=== PATIENT | female | born 1985 | race Caucasian/White ===

== ENCOUNTER 2017-01-25 06:57 | Emergency (ER) | payer MEDICAID ==
[~2017-01-25] VITALS: Wt 65.0 kg
[~2017-01-25 06:57] MED LIST: AZIT250T94 PO; D-ME473S18 PO; FAMO-18; MECL25TA2 PO
[2017-01-25] MEDS ORDERED: AZIT250T94 PO (07:47)
[2017-01-25] MEDS ORDERED: BENZ100C70 PO (07:47)
[2017-01-25] MEDS ORDERED: ALBU8.5H3 INH (07:47)
--- NOTE | 2017-01-25 08:09 | ERD ---
ER Documentation Chief Complaint Date/Time DATE: 01/25/17 TIME: 08:03 Chief Complaint Productive cough 10 days HPI 31-year-old female patient with no significant past medical history presents the ED complaining of a productive cough that started 10 days ago. Patient reports that her phlegm is yellow. Patient reports that she has been taking cough medication called Tussin which has not relieved her symptoms. States that she has a slight sore throat. Patient reports that the symptoms are similar to her symptoms in May 2016 and Zithromax worked for her symptoms at that time when she was diagnosed with bronchitis. Denies any fever, chills, abdominal pain, hemoptysis, hematemesis, nausea, vomiting, diarrhea, rashes, chest pain, shortness of breath, wheezing. Denies any recent traveling. Denies any leg swelling. ROS All systems reviewed and are negative except as per history of present illness. Medications Home Meds Active Scripts Albuterol Sulfate* (Proair HFA*) 8.5 Gm Hfa.aer.ad, 2 PUFF INH Q4, #1 INHALER Prov:AVE ESTEVES PA-C 01/25/17 Azithromycin* (Zithromax*) 250 Mg Tablet, 250 MG PO .ZPACK DIRECTED, #6 TAB TAKE 500 MG (2 TABS) THE FIRST DAY THEN 250 MG (1 TAB) DAYS 2-5 Prov:AVE ESTEVES PA-C 01/25/17 Benzonatate* (Tessalon Perle*) 100 Mg Capsule, 100 MG PO Q8H Y for COUGH, #20 CAP Prov:AVE ESTEVES PA-C 01/25/17 Dextromethorphan Hb-Promethazine Hcl (Promethazine DM Syrup) 473 Ml Syrup, 5 ML PO Q6H Y for COUGH, #4 OZ Prov:MARIO FREY MD 05/16/16 Azithromycin* (Zithromax*) 250 Mg Tablet, 250 MG PO .ZPACK DIRECTED, #6 TAB TAKE 500 MG (2 TABS) THE FIRST DAY THEN 250 MG (1 TAB) DAYS 2-5 Prov:MARIO FREY MD 05/16/16 Meclizine Hcl* (Antivert*) 25 Mg Tablet, 25 MG PO Q6H Y for dizziness, #20 TAB Prov:YANG EATON I. PATHOLOGY LAB TECHNICIAN 07/24/15 Reported Medications Famotidine* (Pepcid*) 20 Mg Tablet 09/16/10 Allergies Allergies: Uncoded Allergies: MEAT (Allergy, Unknown, 07/24/15) PMhx/Soc History of Surgery: No Anesthesia Reaction: No Hx Neurological Disorder: No Hx Respiratory Disorders: No Hx Cardiac Disorders: No Hx Psychiatric Problems: No Hx Miscellaneous Medical Probl: Yes (GASTRITIS) Hx Alcohol Use: No Hx Substance Use: No Hx Tobacco Use: No Physical Exam Vitals Vital Signs Date Time Temp Pulse Resp B/P Pulse Ox O2 Delivery O2 Flow Rate FiO2 01/25/17 07:01 98.0 80 18 134/73 99 Physical Exam Const: Fbo-mji-gpzsdmumx, well-nourished. In no acute distress. Head: Atraumatic, normocephalic Eyes: Normal Conjunctiva without injection. No purulent discharge. PERRL. EOMI ENT: Normal external ear. Ear canal without erythema. Tympanic membrane pearly greene without effusion or bulging. Nasal canal clear with normal turbinates. Moist oropharynx without tonsillar exudates. Non-erythematous pharynx. Uvula midline. No drooling. No trismus. Neck: Full range of motion. No meningismus. No cervical lymphadenopathy. Resp: Clear to auscultation bilaterally. No wheezing, rhonchi, rales, or crackles. No accessory muscle use. No retractions. Cardio: Regular rate and rhythm. No murmurs, rubs or gallops. Abd: Soft, non tender, non distended. Normal bowel sounds. No palpable masses. No rebound tenderness. No guarding. Skin: No petechiae or rashes Back: No midline tenderness. No CVA tenderness. Ext: No cyanosis, or edema. Neur: Awake and alert. Psych: Normal Mood and Affect Procedures/MDM This is a 31-year-old female patient with no significant past medical history presents the ED complaining of a productive cough that started 10 days ago. Patient is afebrile and nontoxic-appearing. Patient has normal vital signs. This patient presents to the ED with symptoms consistent with bronchitis. Patient is afebrile and has normal vital signs. Patient's physical exam include lungs which were clear to auscultation and a normal pulse oximetry. There is a low suspicion for pneumonia, CHF, atypical PR, pneumothorax, mononucleosis, pulmonary embolism, epiglottitis, otitis media, otitis externa, viral/strep pharyngitis, sinusitis, peritonsillar abscess, mastoiditis, retropharyngeal abscess, meningitis, sepsis, acute abdomen or other emergent conditions. Patient states that she is not sexually active and is not . A course of antibiotics and cough medication prescription will be written for patient. Discharge medications: ProAir air, Zithromax, Tessalon Perles Patient was instructed to return to the ED for any new or worsening symptoms. They should otherwise follow up with the primary care provider within 1-2 days. The patient's questions were answered at the time of discharge. Patient understood and agreed with discharge management. Departure Diagnosis: Primary Impression: Cough Condition: Stable Patient Instructions: Bronchitis, Antiobiotic Treatment (Adult) Referrals: COMM[facility]ITY CLINICS YOU HAVE RECEIVED A MEDICAL SCREENING EXAM AND THE RESULTS INDICATE THAT YOU DO NOT HAVE A CONDITION THAT REQUIRES URGENT TREATMENT IN THE EMERGENCY DEPARTMENT. FURTHER EVALUATION AND TREATMENT OF YOUR CONDITION CAN WAIT UNTIL YOU ARE SEEN IN YOUR DOCTORS OFFICE WITHIN THE NEXT 1-2 DAYS. IT IS YOUR RESPONSIBILITY TO MAKE AN APPOINTMENT FOR FOLOW-UP CARE. IF YOU HAVE A PRIMARY DOCTOR --you should call your primary doctor and schedule an appointment IF YOU DO NOT HAVE A PRIMARY DOCTOR YOU CAN CALL OUR PHYSICIAN REFERRAL HOTLINE AT IF YOU CAN NOT AFFORD TO SEE A PHYSICIAN YOU CAN CHOSE FROM THE FOLLOWING [facility] CLINICS [facility] [address] [facility]. [facility] [address] [facility] [facility] [address] [facility]. [facility] [address] [facility] [address] [facility]. [facility]. [address] [facility]. [facility] YOU HAVE RECEIVED A MEDICAL SCREENING EXAM AND THE RESULTS INDICATE THAT YOU DO NOT HAVE A CONDITION THAT REQUIRES URGENT TREATMENT IN THE EMERGENCY DEPARTMENT. FURTHER EVALUATION AND TREATMENT OF YOUR CONDITION CAN WAIT UNTIL YOU ARE SEEN IN YOUR DOCTORS OFFICE WITHIN THE NEXT 1-2 DAYS. IT IS YOUR RESPONSIBILITY TO MAKE AN APPOINTMENT FOR FOLOW-UP CARE. IF YOU HAVE A PRIMARY DOCTOR --you should call your primary doctor and schedule and appointment IF YOU DO NOT HAVE A PRIMARY DOCTOR YOU CAN CALL OUR PHYSICIAN REFERRAL HOTLINE AT . IF YOU CAN NOT AFFORD TO SEE A PHYSICIAN YOU CAN CHOSE FROM THE FOLLOWING [facility] INSTITUTIONS: [facility] [address] [place] [address] [facility] [address] [place], [place] [id number] [place] [address] [address] [place] [address] [facility] URGENT CARE/SPECIALTIES Additional Instructions: Llame al doctor ivory jc JAVON PARA DENTRO DE 2-3 MARCUS.Dgale a la secretaria que nosotros le instruimos hacer esta javon.Avise o llame si morrison condicin se empeora antes de la javon. Regresa aqui si peor o no mejor. AVE ESTEVES PA-C Jan 25, 2017 08:09
== END 2017-01-25 08:11 | disposition home or self-care (01) ==
LOC: FTE 06:57
DX: R05 Cough (principal)
CPT/HCPCS: 99284

== ENCOUNTER 2017-06-21 06:29 | Emergency (ER) | payer MEDICAID ==
[~2017-06-21] VITALS: Ht 157.5 cm; Wt 51.5 kg
[~2017-06-21 06:29] MED LIST changes: +ALBU8.5H3 INH; +BENZ100C70 PO; -FAMO-18; +FAMO-96
[2017-06-21 06:33] VITALS: Ht 157.5 cm; Wt 51.5 kg
[2017-06-21] MEDS ORDERED: TRIA60LO10 TOP (06:56)
[2017-06-21] MEDS ORDERED: BEN25 PO (06:56)
--- NOTE | 2017-06-21 07:06 | ERD ---
ER Documentation Chief Complaint Chief Complaint Complains of generalized pain and headache HPI This is a 32-year-old female presenting to the emergency department for rash and itching to right hip 15 days. Patient states she continues to have pruritis to right hip that comes and goes. No new medications, soaps, foods or detergents per patient. Patient states she treid using antifungal cream without relief of itching. Rash is non spreading. No fevers or chills. No palpable lesions. No drainage or bleeding. No sick contacts. No shortness of breath or difficulty breathing. No cough or wheezing. ROS All systems reviewed and are negative except as per history of present illness. Medications Home Meds Active Scripts Diphenhydramine Hcl* (Benadryl*) 25 Mg Cap, 25 MG PO Q6, #30 CAP Prov:FELICIA SWANN NP 06/21/17 Triamcinolone Acetonide (Triamcinolone Acetonide) 0.025% - 60 Ml Lotion, 1 APPLIC TOP QID, #1 BOTTLE Prov:FELICIA SWANN NP 06/21/17 Albuterol Sulfate* (Proair HFA*) 8.5 Gm Hfa.aer.ad, 2 PUFF INH Q4, #1 INHALER Prov:AVE ESTEVES PA-C 01/25/17 Azithromycin* (Zithromax*) 250 Mg Tablet, 250 MG PO .ZPACK DIRECTED, #6 TAB TAKE 500 MG (2 TABS) THE FIRST DAY THEN 250 MG (1 TAB) DAYS 2-5 Prov:AVE ESTEVES PA-C 01/25/17 Benzonatate* (Tessalon Perle*) 100 Mg Capsule, 100 MG PO Q8H Y for COUGH, #20 CAP Prov:AVE ESTEVES PA-C 01/25/17 Dextromethorphan Hb-Promethazine Hcl (Promethazine DM Syrup) 473 Ml Syrup, 5 ML PO Q6H Y for COUGH, #4 OZ Prov:MARIO FREY MD 05/16/16 Azithromycin* (Zithromax*) 250 Mg Tablet, 250 MG PO .ZPACK DIRECTED, #6 TAB TAKE 500 MG (2 TABS) THE FIRST DAY THEN 250 MG (1 TAB) DAYS 2-5 Prov:MARIO FREY MD 05/16/16 Meclizine Hcl* (Antivert*) 25 Mg Tablet, 25 MG PO Q6H Y for dizziness, #20 TAB Prov:YANG EATON IHazel RASCON 07/24/15 Reported Medications Famotidine* (Pepcid*) 20 Mg Tablet 09/16/10 Allergies Allergies: Uncoded Allergies: MEAT (Allergy, Unknown, 07/24/15) PMhx/Soc History of Surgery: No Anesthesia Reaction: No Hx Neurological Disorder: No Hx Respiratory Disorders: No Hx Cardiac Disorders: No Hx Psychiatric Problems: No Hx Miscellaneous Medical Probl: Yes (GASTRITIS) Hx Substance Use: No Hx Tobacco Use: No Physical Exam Vitals Vital Signs Date Time Temp Pulse Resp B/P Pulse Ox O2 Delivery O2 Flow Rate FiO2 06/21/17 06:33 97.8 93 20 131/78 100 Physical Exam Const: No acute distress, alert Head: Atraumatic Eyes: Normal Conjunctiva ENT: Normal External Ears, Nose and Mouth. Neck: Full range of motion..~ No meningismus. Resp: Clear to auscultation bilaterally. No wheezing, rhonchi or crackles. No stridor or labored breathing. Skin: 3inch patch of generalized mild maculopapular erythematous lesions to right hip. No drainage or bleeding. No warmth. No lymphatic streaking. Back: No midline or flank tenderness Ext: No cyanosis, or edema Neur: Awake and alert Psych: Normal Mood and Affect Procedures/MDM MDM: This is a 32-year-old female presenting to emergency department for rash and itching to right hip 15 days. Patient states she tried antifungal cream without relief of symptoms. There is 3inch patch of generalized mild maculopapular erythematous lesions to right hip. No drainage or bleeding. No warmth. No lymphatic streaking. She is afebrile vital signs are stable. No signs or symptoms of respiratory distress. No angioedema. Low suspicion for anaphylactic reaction. Patient likely has allergic dermatitis versus contact dermatitis versus eczema. Patient is appropriate for outpatient management only given prescription for triamcinolone cream and Benadryl. Instructed patient to follow-up with primary care provider in the next 2-3 days for reassessment and additional management. Return to ED for any high fever, chest pain, difficulty breathing, shortness breath, wheezing, vomiting, diarrhea, abdominal pain or any new or worsening symptoms. Patient verbalizes understanding. All questions answered at discharge. [place] translation used during this encounter. Disclaimer: Inadvertent spelling and grammatical errors are likely due to EHR/ dictation software use and do not reflect on the overall quality of patient care. Also, please note that the electronic time recorded on this note does not necessarily reflect the actual time of the patient encounter. Departure Diagnosis: Primary Impression: Rash Condition: Stable Patient Instructions: Self-Care for Skin Rashes Referrals: [facility] ([facility]) Usted se monsalve hecho un examen mdico de control que le indica que no est en cj condicin que requiera tratamiento urgente en el Departamento de Emergencia. Un estudio ms profundo y el tratamiento de morrison condicin pueden esperar sin ningn riesgo hasta que usted sea atendida/o en el consultorio de morrison mdico o jc cl yecenia. Es responsabilidad suya arreglar jc javon para el seguimiento del jairo. MANEJO DE CONDICIONES NO URGENTES EN EL FUTURO 1) Si usted tiene un mdico de atencin primaria: Usted debera llamar a morrison mdico de atencin primaria antes de venir al departamento de emergencia. Despus de las horas de consultorio, morrison doctor o morrison asociado/a est disponible por telfono. El mdico o enfermero de miley en el servicio telefnico puede asesorarle por laurie medio para atender el problema, o jairo contrario se puede programar jc javon. 2) Si usted no tiene un mdico de atencin primaria: Llame al mdico o clnica de referencia que aparece abajo jessica las horas de consultorio para hacer jc javon para que le vean. CLINICAS: [facility] [phone] [address] [facility] 322 [phone] [address] [facility] 288 [phone] [address] [facility]. [facility] [phone] [address] [facility]. [facility] 049 [phone] [address] [facility]. [phone] [address] [facility]. [facility] () Uszaria se monsalve hecho un examen mdico de control que le indica que no est en jc condicin que requiera tratamiento urgente en el Departamento de Emergencia. Un estudio ms profundo y el tratamiento de morrison condicin pueden esperar sin ningn riesgo hasta que usted sea atendida/o en el consultorio de morrison mdico o jc cl yecenia. Es responsabilidad suya arreglar jc javon para el seguimiento del jairo. MANEJO DE CONDICIONES NO URGENTES EN EL FUTURO 1) Si usted tiene un mdico de atencin primaria: Usted debera llamar a morrison mdico de atencin primaria antes de venir al departamento de emergencia. Despus de las horas de consultorio, morrison doctor o morrison asociado/a est disponible por telfono. El mdico o enfermero de miley en el servicio telefnico puede asesorarle por laurie medio para atender el problema, o jairo contrario se puede programar jc javon. 2) Si usted no tiene un mdico de atencin primaria: Llame al mdico o condado institucions de referencia que aparece abajo jessica las horas de consultorio para hacer jc javon para que le vean. SI USTED NO PUEDE PAGAR PARA MARIE UN MEDICO puede ir a: [facility] [address] [place] [address] [facility] [address] [place] [address] [facility] [address] [place] [address] [facility] [address] [place] [address] Additional Instructions: Llame al doctor MAANA y ivory jc JAVON PARA DENTRO DE 2-3 MARCUS.Dgale a la secretaria que nosotros le instruimos hacer esta javon.Avise o llame si morrison condicin se empeora antes de la javon. Regresa aqui si peor o no mejor. Vuelva a Ed para cualquier fiebre andrew, dolor en el pecho, dificultad para respirar, respiracin entrecortada, sibilancias, vmitos, diarrea, dolor abdominal o cualquier sntoma nuevo o empeoramiento. FELICIA SWANN NP Jun 21, 2017 07:06
== END 2017-06-21 07:29 | disposition home or self-care (01) ==
LOC: FTE 06:29
DX: R21 Rash and other nonspecific skin eruption (principal)
CPT/HCPCS: 99283

== ENCOUNTER 2017-09-27 04:16 | Emergency (ER) | END 2017-09-27 07:18 | disposition home or self-care (01) ==

== ENCOUNTER 2018-01-23 18:13 | Emergency (ER) | END 2018-01-23 19:52 | disposition home or self-care (01) ==

== ENCOUNTER 2018-03-25 17:14 | Emergency (ER) | END 2018-03-25 19:35 | disposition home or self-care (01) ==

== ENCOUNTER 2018-04-23 09:03 | Emergency (ER) | END 2018-04-23 10:55 | disposition home or self-care (01) ==

== ENCOUNTER 2018-08-26 11:36 | Emergency (ER) | payer MEDICAID ==
[~2018-08-26] VITALS: Ht 152.4 cm; Wt 53.6 kg
[~2018-08-26 11:36] MED LIST changes: +ACET500C5 PO; -ALBU8.5H3 INH; +ALBU8.5H8 INH; +AZIT250T PO; -AZIT250T94 PO; +BEN25 PO; +BENZ-6 PO; -BENZ100C70 PO; +CEPH-443 PO; +CETI10CA PO; +D-ME473S2 PO; +FAMO-96 PO; +FLUT9.9S NASAL; +IBUP800T48 PO; +ONDA4TAB8 PO; +PHEN-537 PO; +TRIA60LO10 TOP
[2018-08-26 11:38] VITALS: BP 136/72; PULSE 114; RESP 23; Ht 152.4 cm; Wt 53.6 kg
[2018-08-26] MEDS ORDERED: BENZ-6 PO (12:05)
[2018-08-26] MEDS ORDERED: PROM6.2515 PO (12:05)
[2018-08-26] MEDS ORDERED: PSEU-79 PO (12:05)
[2018-08-26] MEDS ORDERED: NAPR-985 PO (12:05)
--- NOTE | 2018-08-26 13:45 | ERD ---
ER Documentation Chief Complaint Chief Complaint cough since yesterday HPI 33-year-old female presenting with cough times 2 days. Describes as a productive cough. She has a runny nose and a sore throat. Took Tylenol this morning. Had tactile fevers however no documented fevers. Denies medical problems. NKDA. Surgical history denies. Social history denies ROS All systems reviewed and are negative except as per history of present illness. Medications Home Meds Active Scripts Naproxen* (Naprosyn*) 500 Mg Tablet, 500 MG PO BID PRN for PAIN AND/OR INFLAMMATION, #30 TAB Prov:OLY SCOTT PA-C 08/26/18 Pseudoephedrine Hcl* (Suphedrin*) 30 Mg Tablet, 30 MG PO Q6 PRN for CONGESTION, #30 TAB Prov:OLY SCOTT PA-C 08/26/18 Benzonatate* (Tessalon Perle*) 100 Mg Capsule, 100 MG PO Q8H PRN for COUGH, #30 CAP Prov:OLY SCOTT PA-C 08/26/18 Promethazine Hcl* (Promethazine Hcl* Syrup) 6.25 Mg/5 Ml Syrup, 6.25 MG PO Q6H PRN for COUGH, #100 ML Prov:OLY SCOTT PA-C 08/26/18 Fluticasone Propionate (Flonase Allergy Relief) 9.9 Ml [place].susp, 2 SPRAY NASAL DAILY, #1 BOTTLE TO EACH NOSTRIL Prov:KIMBERLEY FORRESTER PA-C 04/23/18 Cetirizine Hcl* (Zyrtec*) 10 Mg Capsule, 10 MG PO DAILY, #14 TAB.CHEW Prov:KIMBERLEY FORRESTER PA-C 04/23/18 Ondansetron Hcl* (Zofran*) 4 Mg Tablet, 4 MG PO Q6H for NAUSEA AND/OR VOMITING, #30 TAB Prov:KIMBERLEY FORRESTER PA-C 04/23/18 Acetaminophen* (Tylophen*) 500 Mg Capsule, 1 CAP PO Q6H PRN for PAIN AND OR ELEVATED TEMP, #30 CAP Prov:KIMBERLEY FORRESTER PA-C 04/23/18 Famotidine* (Pepcid*) 20 Mg Tablet, 20 MG PO BID for 10 Days, TAB Prov:KIMBERLEY FORRESTER PA-C 04/23/18 Azithromycin* (Zithromax*) 250 Mg Tablet, 250 MG PO .RAGHAV DIRECTED, #6 TAB TAKE 500 MG (2 TABS) THE FIRST DAY THEN 250 MG (1 TAB) DAYS 2-5 Prov:MARIO FREY MD 03/25/18 Dextromethorphan Hb-Promethazine Hcl* (Promethazine DM* Syrup) 473 Ml Syrup, 5 ML PO Q6 PRN for COUGH for 5 Days, ML Prov:MARIO FREY MD 03/25/18 Phenazopyridine Hcl* (Pyridium*) 100 Mg Tab, 100 MG PO TID PRN for URINARY PAIN, #8 TAB Prov:MACARIO AHUMADA PA-C 01/23/18 Cephalexin* (Keflex*) 500 Mg Capsule, 500 MG PO BID for 7 Days, CAP Prov:MACARIO AHUMADA PA-C 01/23/18 Benzonatate* (Tessalon Perle*) 100 Mg Capsule, 100 MG PO Q8H PRN for COUGH, #30 CAP Prov:OLY SCOTT PA-C 09/27/17 Dextromethorphan Hb-Promethazine Hcl* (Promethazine DM* Syrup) 473 Ml Syrup, 5 ML PO Q6 PRN for COUGH, #100 ML Prov:OLY SCOTT PA-C 09/27/17 Ibuprofen* (Motrin*) 800 Mg Tab, 800 MG PO Q6, #30 TAB Prov:OLY SCOTT PA-C 09/27/17 Acetaminophen* (Tylophen*) 500 Mg Capsule, 2 CAP PO Q8H PRN for PAIN AND OR ELEVATED TEMP, #20 CAP Prov:OLY SCOTT PA-C 09/27/17 Diphenhydramine Hcl* (Benadryl*) 25 Mg Cap, 25 MG PO Q6, #30 CAP Prov:FELICIA SWANN NP 06/21/17 Triamcinolone Acetonide (Triamcinolone Acetonide) 0.025% - 60 Ml Lotion, 1 APPLIC TOP QID, #1 BOTTLE Prov:FELICIA SWANNHazel RASCON 06/21/17 Albuterol Sulfate* (Proair HFA*) 8.5 Gm Hfa.aer.ad, 2 PUFF INH Q4, #1 INHALER Prov:AVE ESTEVES PA-C 01/25/17 Azithromycin* (Zithromax*) 250 Mg Tablet, 250 MG PO .ZPACK DIRECTED, #6 TAB TAKE 500 MG (2 TABS) THE FIRST DAY THEN 250 MG (1 TAB) DAYS 2-5 Prov:AVE ESTEVES PA-C 01/25/17 Benzonatate* (Tessalon Perle*) 100 Mg Capsule, 100 MG PO Q8H PRN for COUGH, #20 CAP Prov:AVE ESTEVES PA-C 01/25/17 Dextromethorphan Hb-Promethazine Hcl (Promethazine DM Syrup) 473 Ml Syrup, 5 ML PO Q6H PRN for COUGH, #4 OZ Prov:MARIO FREY MD 05/16/16 Azithromycin* (Zithromax*) 250 Mg Tablet, 250 MG PO .ZPACK DIRECTED, #6 TAB TAKE 500 MG (2 TABS) THE FIRST DAY THEN 250 MG (1 TAB) DAYS 2-5 Prov:MARIO FREY MD 05/16/16 Meclizine Hcl* (Antivert*) 25 Mg Tablet, 25 MG PO Q6H PRN for dizziness, #20 TAB Prov:YANG EATON NP 07/24/15 Reported Medications Famotidine* (Pepcid*) 20 Mg Tablet 09/16/10 Allergies Allergies: Coded Allergies: No Known Drug Allergies (Verified Allergy, Unknown, 08/26/18) Uncoded Allergies: MEAT (Allergy, Unknown, 07/24/15) PMhx/Soc History of Surgery: No Anesthesia Reaction: No Hx Neurological Disorder: No Hx Respiratory Disorders: Yes (BRONCHITIS) Hx Cardiac Disorders: No Hx Psychiatric Problems: No Hx Miscellaneous Medical Probl: Yes (GASTRITIS) Hx Alcohol Use: No Hx Substance Use: No Hx Tobacco Use: No FmHx Family History: No diabetes, No coronary disease, No other Physical Exam Vitals Vital Signs Date Temp Pulse Resp B/P (MAP) Pulse Ox O2 O2 Flow FiO2 Time Delivery Rate 08/26/18 97.9 114 23 136/72 99 11:38 (93) Physical Exam GENERAL: The patient is well-appearing, well-nourished, in no acute distress HEENT: Atraumatic. Conjunctivae are pink. Pupils equal, round, and reactive to light. There is no scleral icterus. Tympanic membranes clear bilaterally. Oropharynx clear. NECK: C-spine is soft and supple. There is no meningismus. There is no cervical lymphadenopathy. CHEST: Clear to auscultation bilaterally. There are no rales, wheezes or rhonchi. HEART: Regular rate and rhythm. No murmurs, clicks, rubs or gallops. Procedures/MDM MDM: 33-year-old female presenting with URI type symptoms. I have low suspicion for respiratory distress or hypoxia. I have low suspicion for pneumonia. Patient is discharged with supportive medications. I do not feel patient requires antibiotics. Patient is told if symptoms change or worsen to immediately return to the ER. All questions answered at discharge Departure Diagnosis: Primary Impression: Cough Condition: Stable Patient Instructions: Cough, Chronic, Uncertain Cause, (Adult) Referrals: [facility] YOU HAVE RECEIVED A MEDICAL SCREENING EXAM AND THE RESULTS INDICATE THAT YOU DO NOT HAVE A CONDITION THAT REQUIRES URGENT TREATMENT IN THE EMERGENCY DEPARTMENT. FURTHER EVALUATION AND TREATMENT OF YOUR CONDITION CAN WAIT UNTIL YOU ARE SEEN IN YOUR DOCTORS OFFICE WITHIN THE NEXT 1-2 DAYS. IT IS YOUR RESPONSIBILITY TO MAKE AN APPOINTMENT FOR FOLOW-UP CARE. IF YOU HAVE A PRIMARY DOCTOR --you should call your primary doctor and schedule an appointment IF YOU DO NOT HAVE A PRIMARY DOCTOR YOU CAN CALL OUR PHYSICIAN REFERRAL HOTLINE AT IF YOU CAN NOT AFFORD TO SEE A PHYSICIAN YOU CAN CHOSE FROM THE FOLLOWING [facility] [address] [facility]. [facility] [address] [facility] [address] [facility] [address] [facility]. [facility] [address] [facility] [facility]. [address] Additional Instructions: FOLLOW UP WITH YOUR PRIMARY CARE PHYSICIAN TOMORROW.Return to this facility if you are not improving as expected. OLY SCOTT PA-C Aug 26, 2018 13:45
== END 2018-08-26 12:28 | disposition home or self-care (01) ==
LOC: FTE 11:36
DX: R05 Cough (principal)
CPT/HCPCS: 99283

== ENCOUNTER 2018-10-22 10:08 | Emergency (ER) | payer MEDICAID ==
[~2018-10-22] VITALS: Ht 154.9 cm; Wt 54.6 kg
[~2018-10-22 10:08] MED LIST changes: +NAPR-985 PO; +PROM6.2515 PO; +PSEU-79 PO
[2018-10-22 10:10] VITALS: Ht 154.9 cm; Wt 54.6 kg
[2018-10-22] MEDS ORDERED: ONDANSETRON (ODT) 4 MG TAB ODT STA (10:58)
[2018-10-22] MEDS ORDERED: ACET500C5 PO (11:27)
[2018-10-22] MEDS ORDERED: ONDA4TAB14 PO (11:27)
[2018-10-22 11:51] VITALS: BP 130/71; PULSE 82; RESP 16
--- NOTE | 2018-10-22 13:30 | ERD ---
ER Documentation Chief Complaint Chief Complaint FEVER AND ABDOMINAL PAIN X 4 DAYS HPI 33-year-old female presenting with fever and abdominal pain times 2 days. Patient has had some nausea and is unsure if it is due to a bad hamburger she ate. Patient last took Tylenol 4 hours prior to my evaluation. Denies medical problems. NKDA. Surgical history denies. Social history denies ROS All systems reviewed and are negative except as per history of present illness. Medications Home Meds Active Scripts Ondansetron (Ondansetron Odt) 4 Mg Tab.rapdis, 4 MG PO Q6H PRN for NAUSEA AND/OR VOMITING, #10 TAB Prov:OLY SCOTT PA-C 10/22/18 Acetaminophen* (Tylophen*) 500 Mg Capsule, 2 CAP PO Q8H PRN for PAIN AND OR ELEVATED TEMP, #20 CAP Prov:OLY SCOTT PA-C 10/22/18 Naproxen* (Naprosyn*) 500 Mg Tablet, 500 MG PO BID PRN for PAIN AND/OR I NFLAMMATION, #30 TAB Prov:OLY SCOTT PA-C 08/26/18 Pseudoephedrine Hcl* (Suphedrin*) 30 Mg Tablet, 30 MG PO Q6 PRN for CONGESTION, #30 TAB Prov:OLY SCOTT PA-C 08/26/18 Benzonatate* (Tessalon Perle*) 100 Mg Capsule, 100 MG PO Q8H PRN for COUGH, #30 CAP Prov:OLY SCOTT PA-C 08/26/18 Promethazine Hcl* (Promethazine Hcl* Syrup) 6.25 Mg/5 Ml Syrup, 6.25 MG PO Q6H PRN for COUGH, #100 ML Prov:OLY SCOTT PA-C 08/26/18 Fluticasone Propionate (Flonase Allergy Relief) 9.9 Ml [place].susp, 2 SPRAY NASAL DAILY, #1 BOTTLE TO EACH NOSTRIL Prov:KIMBERLEY FORRESTER PA-C 04/23/18 Cetirizine Hcl* (Zyrtec*) 10 Mg Capsule, 10 MG PO DAILY, #14 TAB.CHEW Prov:KIMBERLEY FORRESTER PA-C 04/23/18 Ondansetron Hcl* (Zofran*) 4 Mg Tablet, 4 MG PO Q6H for NAUSEA AND/OR VOMITING, #30 TAB Prov:KIMBERLEY FORRESTER PA-C 04/23/18 Acetaminophen* (Tylophen*) 500 Mg Capsule, 1 CAP PO Q6H PRN for PAIN AND OR ELEVATED TEMP, #30 CAP Prov:KIMBERLEY FORRESTER PA-C 04/23/18 Famotidine* (Pepcid*) 20 Mg Tablet, 20 MG PO BID for 10 Days, TAB Prov:KIMBERLEY FORRESTER PA-C 04/23/18 Azithromycin* (Zithromax*) 250 Mg Tablet, 250 MG PO .RAGHAV DIRECTED, #6 TAB TAKE 500 MG (2 TABS) THE FIRST DAY THEN 250 MG (1 TAB) DAYS 2-5 Prov:MARIO FREY MD 03/25/18 Dextromethorphan Hb-Promethazine Hcl* (Promethazine DM* Syrup) 473 Ml Syrup, 5 ML PO Q6 PRN for COUGH for 5 Days, ML Prov:MARIO FREY MD 03/25/18 Phenazopyridine Hcl* (Pyridium*) 100 Mg Tab, 100 MG PO TID PRN for URINARY PAIN, #8 TAB Prov:MACARIO AHUMADA PA-C 01/23/18 Cephalexin* (Keflex*) 500 Mg Capsule, 500 MG PO BID for 7 Days, CAP Prov:MACARIO AHUMADA PA-C 01/23/18 Benzonatate* (Tessalon Perle*) 100 Mg Capsule, 100 MG PO Q8H PRN for COUGH, #30 CAP Prov:OLY SCOTT PA-C 09/27/17 Dextromethorphan Hb-Promethazine Hcl* (Promethazine DM* Syrup) 473 Ml Syrup, 5 ML PO Q6 PRN for COUGH, #100 ML Prov:OLY SCOTT PA-C 09/27/17 Ibuprofen* (Motrin*) 800 Mg Tab, 800 MG PO Q6, #30 TAB Prov:OLY SCOTT PA-C 09/27/17 Acetaminophen* (Tylophen*) 500 Mg Capsule, 2 CAP PO Q8H PRN for PAIN AND OR ELEVATED TEMP, #20 CAP Prov:OLY SCOTT PA-C 09/27/17 Diphenhydramine Hcl* (Benadryl*) 25 Mg Cap, 25 MG PO Q6, #30 CAP Prov:HUEFELICIA Soto NP 06/21/17 Triamcinolone Acetonide (Triamcinolone Acetonide) 0.025% - 60 Ml Lotion, 1 APPLIC TOP QID, #1 BOTTLE Prov:FELICIA SWANN NP 06/21/17 Albuterol Sulfate* (Proair HFA*) 8.5 Gm Hfa.aer.ad, 2 PUFF INH Q4, #1 INHALER Prov:AVE ESTEVES PA-C 01/25/17 Azithromycin* (Zithromax*) 250 Mg Tablet, 250 MG PO .ZPACK DIRECTED, #6 TAB TAKE 500 MG (2 TABS) THE FIRST DAY THEN 250 MG (1 TAB) DAYS 2-5 Prov:AVE ESTEVES PA-C 01/25/17 Benzonatate* (Tessalon Perle*) 100 Mg Capsule, 100 MG PO Q8H PRN for COUGH, #20 CAP Prov:AVE ESTEVES PA-C 01/25/17 Dextromethorphan Hb-Promethazine Hcl (Promethazine DM Syrup) 473 Ml Syrup, 5 ML PO Q6H PRN for COUGH, #4 OZ Prov:MARIO FREY MD 05/16/16 Azithromycin* (Zithromax*) 250 Mg Tablet, 250 MG PO .ZPACK DIRECTED, #6 TAB TAKE 500 MG (2 TABS) THE FIRST DAY THEN 250 MG (1 TAB) DAYS 2-5 Prov:MARIO FREY MD 05/16/16 Meclizine Hcl* (Antivert*) 25 Mg Tablet, 25 MG PO Q6H PRN for dizziness, #20 TAB Prov:YANG EATON NP 07/24/15 Reported Medications Famotidine* (Pepcid*) 20 Mg Tablet 09/16/10 Allergies Allergies: Coded Allergies: No Known Drug Allergies (Verified Allergy, Unknown, 08/26/18) Uncoded Allergies: MEAT (Allergy, Unknown, 07/24/15) PMhx/Soc History of Surgery: No Anesthesia Reaction: No Hx Neurological Disorder: No Hx Respiratory Disorders: Yes (BRONCHITIS) Hx Cardiac Disorders: No Hx Psychiatric Problems: No Hx Miscellaneous Medical Probl: Yes (GASTRITIS) Hx Alcohol Use: No Hx Substance Use: No Hx Tobacco Use: No Smoking Status: Never smoker FmHx Family History: No diabetes, No coronary disease, No other Physical Exam Vitals Vital Signs Date Temp Pulse Resp B/P (MAP) Pulse Ox O2 O2 Flow FiO2 Time Delivery Rate 10/22/18 98.5 82 16 130/71 100 Room Air 11:51 (90) 10/22/18 98.8 87 17 148/74 100 10:10 (98) Physical Exam GENERAL: The patient is well-appearing, well-nourished, in no acute distress HEENT: Atraumatic. Conjunctivae are pink. Pupils equal, round, and reactive to light. There is no scleral icterus. Tympanic membranes clear bilaterally. Oropharynx clear. NECK: C-spine is soft and supple. There is no meningismus. There is no cervical lymphadenopathy. CHEST: Clear to auscultation bilaterally. There are no rales, wheezes or rhonchi. HEART: Regular rate and rhythm. No murmurs, clicks, rubs or gallops. No S3 or S4. ABDOMEN:Soft and nondistended. Good bowel sounds. No rebound or guarding. No gross peritonitis. No gross organomegaly or masses. tender to palpation over the abdomen. Results 24 hrs Laboratory Tests Test 10/22/18 11:13 10/22/18 11:15 Bedside Urine pH (LAB) 7.0 Bedside Urine Protein (LAB) Negative Bedside Urine Glucose (UA) Negative Bedside Urine Ketones (LAB) Negative Bedside Urine Blood 3+ Bedside Urine Nitrite (LAB) Negative Bedside Urine Leukocyte Esterase (L Negative POC Beta HCG, Qualitative NEGATIVE Current Medications Medications Dose Sig/Gianluca Start Time Status Last (Trade) Ordered Route PRN Stop Time Admin Dose Reason Admin Ondansetron 4 mg ONCE STAT 10/22/18 DC 10/22/18 HCl (Zofran ODT 10:58 11:10 Odt) 10/22/18 10:59 Procedures/MDM MDM: 33-year-old female presenting with abdominal pain. Patient's exam is non- concerning and I do not feel there is indication for blood work or imaging. Patient is discharged with supportive medications and strict ER precautions. Patient is told symptoms change or worsen to return immediately to the ER. All questions answered at discharge Departure Diagnosis: Primary Impression: Abdominal pain Condition: Stable Patient Instructions: Abdominal Pain Referrals: [facility] YOU HAVE RECEIVED A MEDICAL SCREENING EXAM AND THE RESULTS INDICATE THAT YOU DO NOT HAVE A CONDITION THAT REQUIRES URGENT TREATMENT IN THE EMERGENCY DEPARTMENT. FURTHER EVALUATION AND TREATMENT OF YOUR CONDITION CAN WAIT UNTIL YOU ARE SEEN IN YOUR DOCTORS OFFICE WITHIN THE NEXT 1-2 DAYS. IT IS YOUR RESPONSIBILITY TO MAKE AN APPOINTMENT FOR FOLOW-UP CARE. IF YOU HAVE A PRIMARY DOCTOR --you should call your primary doctor and schedule an appointment IF YOU DO NOT HAVE A PRIMARY DOCTOR YOU CAN CALL OUR PHYSICIAN REFERRAL HOTLINE AT IF YOU CAN NOT AFFORD TO SEE A PHYSICIAN YOU CAN CHOSE FROM THE FOLLOWING [facility] [address] [facility] [facility] [address] [facility] [facility] [address] [facility] [address] [facility] [address] [facility] [address] Additional Instructions: FOLLOW UP WITH YOUR PRIMARY CARE PHYSICIAN TOMORROW.Return to this facility if you are not improving as expected. OLY SCOTT PA-C Oct 22, 2018 13:30
== END 2018-10-22 11:52 | disposition home or self-care (01) ==
LOC: FTE 10:08
DX: R10.9 Unspecified abdominal pain (principal); R11.0 Nausea
CPT/HCPCS: 81003; 81025; Z7610; 99283

== ENCOUNTER 2018-11-02 09:50 | Emergency (ER) | payer MEDICAID ==
[~2018-11-02] VITALS: Ht 157.5 cm; Wt 53.8 kg
[~2018-11-02 09:50] MED LIST changes: +ONDA4TAB14 PO
[2018-11-02 09:56] VITALS: Ht 157.5 cm; Wt 53.8 kg
[2018-11-02] MEDS ORDERED: FAMO-96 PO (11:53)
[2018-11-02] MEDS ORDERED: HYDR-4011 PO (11:53)
[2018-11-02 12:16] VITALS: BP 148/68; PULSE 66; RESP 18
--- NOTE | 2018-11-02 13:32 | ERD ---
ER Documentation Chief Complaint Chief Complaint EPIGASTRIC PAIN W/NAUSEA X1WK HPI 33-year-old female presenting with epigastric pain and nausea times 1 week. Patient has not taken medications for symptoms. Denies changes in urination or bowel movement. Denies fevers. Denies chest pain or shortness of breath. Has a history of gastritis. NKDA. Surgical history denies. Social history denies ROS All systems reviewed and are negative except as per history of present illness. Medications Home Meds Active Scripts Hydrocodone/Acetaminophen ([place] 5-325 Tablet) 1 Each Tablet, 1 TAB PO Q6H PRN for PAIN, #7 TAB Prov:OLY SCOTT PA-C 11/02/18 Famotidine* (Pepcid*) 20 Mg Tablet, 20 MG PO BID for 4 Days, #30 TAB Prov:OLY SCOTT PA-C 11/02/18 Ondansetron (Ondansetron Odt) 4 Mg Tab.rapdis, 4 MG PO Q6H PRN for NAUSEA AND/OR VOMITING, #10 TAB Prov:OLY SCOTT PA-C 10/22/18 Acetaminophen* (Tylophen*) 500 Mg Capsule, 2 CAP PO Q8H PRN for PAIN AND OR ELEVATED TEMP, #20 CAP Prov:OLY SCOTT PA-C 10/22/18 Naproxen* (Naprosyn*) 500 Mg Tablet, 500 MG PO BID PRN for PAIN AND/OR INFLAMMATION, #30 TAB Prov:OLY SCOTT PA-C 08/26/18 Pseudoephedrine Hcl* (Suphedrin*) 30 Mg Tablet, 30 MG PO Q6 PRN for CONGESTION, #30 TAB Prov:OLY SCOTT PA-C 08/26/18 Benzonatate* (Tessalon Perle*) 100 Mg Capsule, 100 MG PO Q8H PRN for COUGH, #30 CAP Prov:OLY SCOTT PA-C 08/26/18 Promethazine Hcl* (Promethazine Hcl* Syrup) 6.25 Mg/5 Ml Syrup, 6.25 MG PO Q6H PRN for COUGH, #100 ML Prov:OYL SCOTT PA-C 08/26/18 Fluticasone Propionate (Flonase Allergy Relief) 9.9 Ml [place].susp, 2 SPRAY NASAL DAILY, #1 BOTTLE TO EACH NOSTRIL Prov:KIMBERLEY FORRESTER PA-C 04/23/18 Cetirizine Hcl* (Zyrtec*) 10 Mg Capsule, 10 MG PO DAILY, #14 TAB.CHEW Prov:KIMBERLEY FORRESTER PA-C 04/23/18 Ondansetron Hcl* (Zofran*) 4 Mg Tablet, 4 MG PO Q6H for NAUSEA AND/OR VOMITING, #30 TAB Prov:KIMBERLEY FORRESTER PA-C 04/23/18 Acetaminophen* (Tylophen*) 500 Mg Capsule, 1 CAP PO Q6H PRN for PAIN AND OR EL EVATED TEMP, #30 CAP Prov:KIMBERLEY FORRESTER PA-C 04/23/18 Famotidine* (Pepcid*) 20 Mg Tablet, 20 MG PO BID for 10 Days, TAB Prov:KIMBERLEY FORRESTER PA-C 04/23/18 Azithromycin* (Zithromax*) 250 Mg Tablet, 250 MG PO .RehanPACK DIRECTED, #6 TAB TAKE 500 MG (2 TABS) THE FIRST DAY THEN 250 MG (1 TAB) DAYS 2-5 Prov:MARIO FREY MD 03/25/18 Dextromethorphan Hb-Promethazine Hcl* (Promethazine DM* Syrup) 473 Ml Syrup, 5 ML PO Q6 PRN for COUGH for 5 Days, ML Prov:MARIO FREY MD 03/25/18 Phenazopyridine Hcl* (Pyridium*) 100 Mg Tab, 100 MG PO TID PRN for URINARY PAIN, #8 TAB Prov:MACARIO AHUMADA PA-C 01/23/18 Cephalexin* (Keflex*) 500 Mg Capsule, 500 MG PO BID for 7 Days, CAP Prov:MACARIO AHUMADA PA-C 01/23/18 Benzonatate* (Tessalon Perle*) 100 Mg Capsule, 100 MG PO Q8H PRN for COUGH, #30 CAP Prov:OLY SCOTT PA-C 09/27/17 Dextromethorphan Hb-Promethazine Hcl* (Promethazine DM* Syrup) 473 Ml Syrup, 5 ML PO Q6 PRN for COUGH, #100 ML Prov:OLY SCOTT PA-C 09/27/17 Ibuprofen* (Motrin*) 800 Mg Tab, 800 MG PO Q6, #30 TAB Prov:OLY SCOTT PA-C 09/27/17 Acetaminophen* (Tylophen*) 500 Mg Capsule, 2 CAP PO Q8H PRN for PAIN AND OR ELEVATED TEMP, #20 CAP Prov:OLY SCOTT PA-C 09/27/17 Diphenhydramine Hcl* (Benadryl*) 25 Mg Cap, 25 MG PO Q6, #30 CAP Prov:FELICIA SWANN NP 06/21/17 Triamcinolone Acetonide (Triamcinolone Acetonide) 0.025% - 60 Ml Lotion, 1 APPLIC TOP QID, #1 BOTTLE Prov:FELICIA SWANN NP 06/21/17 Albuterol Sulfate* (Proair HFA*) 8.5 Gm Hfa.aer.ad, 2 PUFF INH Q4, #1 INHALER Prov:AVE ESTEVES PA-C 01/25/17 Azithromycin* (Zithromax*) 250 Mg Tablet, 250 MG PO .ZPACK DIRECTED, #6 TAB TAKE 500 MG (2 TABS) THE FIRST DAY THEN 250 MG (1 TAB) DAYS 2-5 Prov:AVE ESTEVES PA-C 01/25/17 Benzonatate* (Tessalon Perle*) 100 Mg Capsule, 100 MG PO Q8H PRN for COUGH, #20 CAP Prov:AVE ESTEVES PA-C 01/25/17 Dextromethorphan Hb-Promethazine Hcl (Promethazine DM Syrup) 473 Ml Syrup, 5 ML PO Q6H PRN for COUGH, #4 OZ Prov:MARIO FREY MD 05/16/16 Azithromycin* (Zithromax*) 250 Mg Tablet, 250 MG PO .ZPACK DIRECTED, #6 TAB TAKE 500 MG (2 TABS) THE FIRST DAY THEN 250 MG (1 TAB) DAYS 2-5 Prov:MARIO FREY MD 05/16/16 Meclizine Hcl* (Antivert*) 25 Mg Tablet, 25 MG PO Q6H PRN for dizziness, #20 TAB Prov:YANG EATON I. TARAH 07/24/15 Reported Medications Famotidine* (Pepcid*) 20 Mg Tablet 09/16/10 Allergies Allergies: Coded Allergies: No Known Drug Allergies (Verified Allergy, Unknown, 08/26/18) Uncoded Allergies: MEAT (Allergy, Unknown, 07/24/15) PMhx/Soc History of Surgery: No Anesthesia Reaction: No Hx Neurological Disorder: No Hx Respiratory Disorders: No Hx Cardiac Disorders: No Hx Psychiatric Problems: No Hx Miscellaneous Medical Probl: No Hx Alcohol Use: No Hx Substance Use: No Hx Tobacco Use: No Smoking Status: Never smoker FmHx Family History: No diabetes, No coronary disease, No other Physical Exam Vitals Vital Signs Date Temp Pulse Resp B/P (MAP) Pulse Ox O2 O2 Flow FiO2 Time Delivery Rate 11/02/18 98.7 66 18 148/68 98 Room Air 12:16 (94) 11/02/18 98.7 102 18 151/77 98 09:56 (101) Physical Exam GENERAL: The patient is well-appearing, well-nourished, in no acute distress HEENT: Atraumatic. Conjunctivae are pink. Pupils equal, round, and reactive to light. There is no scleral icterus. Tympanic membranes clear bilaterally. Oropharynx clear. NECK: C-spine is soft and supple. There is no meningismus. There is no cervical lymphadenopathy. CHEST: Clear to auscultation bilaterally. There are no rales, wheezes or rhonchi. HEART: Regular rate and rhythm. No murmurs, clicks, rubs or gallops. ABDOMEN: Normal active bowel sounds. No distention. No organomegaly. Tender to palpation epigastric region with no rebound tenderness. Result Diagram: 11/02/18 1042 11/02/18 1042 Results 24 hrs Laboratory Tests Test 11/02/18 10:42 White Blood Count 10.7 10^3/ul Red Blood Count 4.96 10^6/ul Hemoglobin 15.1 g/dl Hematocrit 44.1 % Mean Corpuscular Volume 88.9 fl Mean Corpuscular Hemoglobin 30.4 pg Mean Corpuscular Hemoglobin Concent 34.2 g/dl Red Cell Distribution Width 11.8 % Platelet Count 372 10^3/UL Mean Platelet Volume 9.2 fl Immature Granulocytes % 0.500 % Neutrophils % 85.5 % Lymphocytes % 10.1 % Monocytes % 3.3 % Eosinophils % 0.1 % Basophils % 0.5 % Nucleated Red Blood Cells % 0.0 /100WBC Immature Granulocytes # 0.050 10^3/ul Neutrophils # 9.2 10^3/ul Lymphocytes # 1.1 10^3/ul Monocytes # 0.4 10^3/ul Eosinophils # 0.0 10^3/ul Basophils # 0.1 10^3/ul Nucleated Red Blood Cells # 0.0 10^3/ul Urine Color STRAW Urine Clarity CLEAR Urine pH 5.0 Urine Specific [place] 1.004 Urine Ketones NEGATIVE mg/dL Urine Nitrite NEGATIVE mg/dL Urine Bilirubin NEGATIVE mg/dL Urine Urobilinogen NEGATIVE mg/dL Urine Leukocyte Esterase NEGATIVE Violeta/ul Urine Hemoglobin NEGATIVE mg/dL Urine Glucose NEGATIVE mg/dL Urine Total Protein NEGATIVE mg/dl Sodium Level 144 mmol/L Potassium Level 3.8 mmol/L Chloride Level 105 mmol/L Carbon Dioxide Level 27 mmol/L Anion Gap 12 Blood Urea Nitrogen 10 mg/dl Creatinine 0.48 mg/dl Est Glomerular Filtrat Rate mL/min > 60 mL/min Glucose Level 107 mg/dl Calcium Level 10.2 mg/dl Total Bilirubin 0.4 mg/dl Direct Bilirubin 0.00 mg/dl Indirect Bilirubin 0.4 mg/dl Aspartate Amino Transf (AST/SGOT) 20 IU/L Alanine Aminotransferase (ALT/SGPT) 18 IU/L Alkaline Phosphatase 105 IU/L Total Protein 8.0 g/dl Albumin 4.8 g/dl Globulin 3.20 g/dl Albumin/Globulin Ratio 1.50 Lipase 59 U/L Procedures/[facility] REPORT Patient: JANET PABON : 1985 Age: 33 Sex: F [id number] DOS: 11/02/18 1029 Ordering MD: URBAN SCOTT PA-C Location: [facility] Room/Bed: PROCEDURE: US Abdomen. CLINICAL INDICATION: abdominal pain TECHNIQUE: Multiple real-time images were acquired of the patient's right upper quadrant abdomen and retroperitoneum utilizing a high resolution transducer. COMPARISON: None FINDINGS: The liver demonstrates normal echogenicity. The liver is normal in size and no focal solid lesions are seen. The liver measures 13.3 cm in length. The portal vein is patent with normal direction of flow. No intrahepatic biliary dilatation is seen. No gallstones are identified within the gallbladder. There is no pericholecystic fluid or gallbladder wall thickening. The common bile duct measures 3 mm in maximal dimension. The visualized portions of the pancreas are unremarkable. The tail of the pancreas is not seen. No free fluid is identified. The right kidney is normal in size, and demonstrate normal echogenicity and cortical thickness. The right kidney measures 10.3 cm in long dimension. There is no evidence of hydronephrosis. There are no kidney stones. RPTAT: AA IMPRESSION: Unremarkable right upper quadrant abdominal ultrasound. MDM: 33-year-old female presenting with epigastric pain times 1 week. Patient blood work and imaging was within normal limits. I have low suspicion for choledocholithiasis, cholecystitis, cholangitis or pancreatitis. Patient is discharged with supportive medications and told to follow-up with primary care within 1-2 days for close evaluation. Patient is told if symptoms change or worsen to return in the ER immediately. All questions answered at discharge Departure Diagnosis: Primary Impression: Epigastric pain Condition: Stable Patient Instructions: Epigastric Pain (Uncertain Cause) Referrals: [facility] YOU HAVE RECEIVED A MEDICAL SCREENING EXAM AND THE RESULTS INDICATE THAT YOU DO NOT HAVE A CONDITION THAT REQUIRES URGENT TREATMENT IN THE EMERGENCY DEPARTMENT. FURTHER EVALUATION AND TREATMENT OF YOUR CONDITION CAN WAIT UNTIL YOU ARE SEEN IN YOUR DOCTORS OFFICE WITHIN THE NEXT 1-2 DAYS. IT IS YOUR RESPONSIBILITY TO MAKE AN APPOINTMENT FOR FOLOW-UP CARE. IF YOU HAVE A PRIMARY DOCTOR --you should call your primary doctor and schedule an appointment IF YOU DO NOT HAVE A PRIMARY DOCTOR YOU CAN CALL OUR PHYSICIAN REFERRAL HOTLINE AT IF YOU CAN NOT AFFORD TO SEE A PHYSICIAN YOU CAN CHOSE FROM THE FOLLOWING [facility] [address] [facility] [address] [facility] [facility] [address] [facility] [address] [facility] [address] [facility] [facility] [address] [facility] [address] Additional Instructions: FOLLOW UP WITH YOUR PRIMARY CARE PHYSICIAN TOMORROW.Return to this facility if you are not improving as expected. OLY SCOTT PA-C Nov 02, 2018 13:32
== END 2018-11-02 12:11 | disposition home or self-care (01) ==
LOC: FTE 09:50
DX: R10.13 Epigastric pain (principal)
CPT/HCPCS: 76705; 80053; 81003; 83690; 85025; Z7502

== ENCOUNTER 2019-02-25 13:48 | Emergency (ER) | payer MEDICAID ==
[~2019-02-25] VITALS: Ht 149.9 cm; Wt 53.8 kg
[~2019-02-25 13:48] MED LIST changes: +HYDR-4011 PO
[2019-02-25 13:49] VITALS: BP 133/68; PULSE 101; RESP 24; Ht 149.9 cm; Wt 53.8 kg
[2019-02-25] MEDS ORDERED: AZIT250T PO (14:14)
[2019-02-25] MEDS ORDERED: D-ME473S2 PO (14:15)
--- NOTE | 2019-02-25 15:09 | ERD ---
ER Documentation Chief Complaint Chief Complaint cough x 1 month HPI 33-year-old female presents complaint of cough for the past month. In addition patient states that she is been experiencing some congestion. Patient states that she has a history of bronchitis as well for which she is not taking any treatments. Patient denies fever, night sweats, weight loss, fatigue, hemoptysis, wheezing, dyspnea, pleuritic chest pain, or orthopnea. Denies past medical history. Denies allergies. Denies medications. Denies surgeries. Denies alcohol, tobacco, or drug use. ROS All systems reviewed and are negative except as per history of present illness. Medications Home Meds Active Scripts Dextromethorphan Hb-Promethazine Hcl* (Promethazine DM* Syrup) 473 Ml Syrup, 5 ML PO Q6 PRN for COUGH, #4 OZ Prov:BRIAN BINGHAM 02/25/19 Azithromycin* (Zithromax*) 250 Mg Tablet, 250 MG PO .ZPACK DIRECTED, #6 TAB TAKE 500 MG (2 TABS) THE FIRST DAY THEN 250 MG (1 TAB) DAYS 2-5 Prov:BRIAN BINGHAM 02/25/19 Hydrocodone/Acetaminophen ([place] 5-325 Tablet) 1 Each Tablet, 1 TAB PO Q6H PRN for PAIN, #7 TAB Prov:OLY SCOTT PA-C 11/02/18 Famotidine* (Pepcid*) 20 Mg Tablet, 20 MG PO BID for 4 Days, #30 TAB Prov:OLY SCOTT PA-C 11/02/18 Ondansetron (Ondansetron Odt) 4 Mg Tab.rapdis, 4 MG PO Q6H PRN for NAUSEA AND/OR VOMITING, #10 TAB Prov:OLY SCOTT PA-C 10/22/18 Acetaminophen* (Tylophen*) 500 Mg Capsule, 2 CAP PO Q8H PRN for PAIN AND OR ELEVATED TEMP, #20 CAP Prov:OLY SCOTT PA-C 10/22/18 Naproxen* (Naprosyn*) 500 Mg Tablet, 500 MG PO BID PRN for PAIN AND/OR INFLAMMATION, #30 TAB Prov:OLY SCOTT PA-C 08/26/18 Pseudoephedrine Hcl* (Suphedrin*) 30 Mg Tablet, 30 MG PO Q6 PRN for CONGESTION, #30 TAB Prov:OLY SCOTT PA-C 08/26/18 Benzonatate* (Tessalon Perle*) 100 Mg Capsule, 100 MG PO Q8H PRN for COUGH, #30 CAP Prov:OLY SCOTT PA-C 08/26/18 Promethazine Hcl* (Promethazine Hcl* Syrup) 6.25 Mg/5 Ml Syrup, 6.25 MG PO Q6H PRN for COUGH, #100 ML Prov:OLY SCOTT PA-C 08/26/18 Fluticasone Propionate (Flonase Allergy Relief) 9.9 Ml [place].susp, 2 SPRAY NASAL DAILY, #1 BOTTLE TO EACH NOSTRIL Prov:KIMBERLEY FORRESTER PA-C 04/23/18 Cetirizine Hcl* (Zyrtec*) 10 Mg Capsule, 10 MG PO DAILY, #14 TAB.CHEW Prov:KIMBERLEY FORRESTER PA-C 04/23/18 Ondansetron Hcl* (Zofran*) 4 Mg Tablet, 4 MG PO Q6H for NAUSEA AND/OR VOMITING, #30 TAB Prov:KIMBERLEY FORRESTER PA-C 04/23/18 Acetaminophen* (Tylophen*) 500 Mg Capsule, 1 CAP PO Q6H PRN for PAIN AND OR ELEVATED TEMP, #30 CAP Prov:KIMBERLEY FORRESTER PA-C 04/23/18 Famotidine* (Pepcid*) 20 Mg Tablet, 20 MG PO BID for 10 Days, TAB Prov:KIMBERLEY FORRESTER PA-C 04/23/18 Azithromycin* (Zithromax*) 250 Mg Tablet, 250 MG PO .RAGHAV DIRECTED, #6 TAB TAKE 500 MG (2 TABS) THE FIRST DAY THEN 250 MG (1 TAB) DAYS 2-5 Prov:MARIO FREY MD 03/25/18 Dextromethorphan Hb-Promethazine Hcl* (Promethazine DM* Syrup) 473 Ml Syrup, 5 ML PO Q6 PRN for COUGH for 5 Days, ML Prov:MARIO FREY MD 03/25/18 Phenazopyridine Hcl* (Pyridium*) 100 Mg Tab, 100 MG PO TID PRN for URINARY PAIN, #8 TAB Prov:MACARIO AHUMADA PA-C 01/23/18 Cephalexin* (Keflex*) 500 Mg Capsule, 500 MG PO BID for 7 Days, CAP Prov:MACARIO AHUMADA PA-C 01/23/18 Benzonatate* (Tessalon Perle*) 100 Mg Capsule, 100 MG PO Q8H PRN for COUGH, #30 CAP Prov:OLY SCOTT PA-C 09/27/17 Dextromethorphan Hb-Promethazine Hcl* (Promethazine DM* Syrup) 473 Ml Syrup, 5 ML PO Q6 PRN for COUGH, #100 ML Prov:OLY SCOTT PA-C 09/27/17 Ibuprofen* (Motrin*) 800 Mg Tab, 800 MG PO Q6, #30 TAB Prov:OLY SCOTT PA-C 09/27/17 Acetaminophen* (Tylophen*) 500 Mg Capsule, 2 CAP PO Q8H PRN for PAIN AND OR ELEVATED TEMP, #20 CAP Prov:OLY SCOTT PA-C 09/27/17 Diphenhydramine Hcl* (Benadryl*) 25 Mg Cap, 25 MG PO Q6, #30 CAP Prov:FELICIA SWANN NP 06/21/17 Triamcinolone Acetonide (Triamcinolone Acetonide) 0.025% - 60 Ml Lotion, 1 APPLIC TOP QID, #1 BOTTLE Prov:FELICIA SWANN NP 06/21/17 Albuterol Sulfate* (Proair HFA*) 8.5 Gm Hfa.aer.ad, 2 PUFF INH Q4, #1 INHALER Prov:AVE ESTEVES PA-C 01/25/17 Azithromycin* (Zithromax*) 250 Mg Tablet, 250 MG PO .RAGHAV DIRECTED, #6 TAB TAKE 500 MG (2 TABS) THE FIRST DAY THEN 250 MG (1 TAB) DAYS 2-5 Prov:AVE ESTEVES PA-C 01/25/17 Benzonatate* (Tessalon Perle*) 100 Mg Capsule, 100 MG PO Q8H PRN for COUGH, #20 CAP Prov:AVE ESTEVES PA-C 01/25/17 Dextromethorphan Hb-Promethazine Hcl (Promethazine DM Syrup) 473 Ml Syrup, 5 ML PO Q6H PRN for COUGH, #4 OZ Prov:MARIO FREY MD 05/16/16 Azithromycin* (Zithromax*) 250 Mg Tablet, 250 MG PO .ZPACK DIRECTED, #6 TAB TAKE 500 MG (2 TABS) THE FIRST DAY THEN 250 MG (1 TAB) DAYS 2-5 Prov:MARIO FREY MD 05/16/16 Meclizine Hcl* (Antivert*) 25 Mg Tablet, 25 MG PO Q6H PRN for dizziness, #20 TAB Prov:YANG EATON NP 07/24/15 Reported Medications Famotidine* (Pepcid*) 20 Mg Tablet 09/16/10 Allergies Allergies: Coded Allergies: No Known Drug Allergies (Verified Allergy, Unknown, 08/26/18) Uncoded Allergies: MEAT (Allergy, Unknown, 07/24/15) PMhx/Soc History of Surgery: No Anesthesia Reaction: No Hx Neurological Disorder: No Hx Respiratory Disorders: Yes (BRONCHITIS) Hx Cardiac Disorders: No Hx Psychiatric Problems: No Hx Miscellaneous Medical Probl: No Hx Alcohol Use: No Hx Substance Use: No Hx Tobacco Use: No Smoking Status: Never smoker Physical Exam Vitals Vital Signs Date Temp Pulse Resp B/P (MAP) Pulse Ox O2 O2 Flow FiO2 Time Delivery Rate 02/25/19 98.9 101 24 133/68 99 13:49 (89) Physical Exam Const: No acute distress Head: Atraumatic Eyes: Normal Conjunctiva ENT: Normal External Ears, Nose and Mouth. Neck: Full range of motion. No meningismus. Resp: Clear to auscultation bilaterally Cardio: Regular rate and rhythm, no murmurs Abd: Soft, non tender, non distended. Normal bowel sounds Skin: No petechiae or rashes Back: No midline or flank tenderness Ext: No cyanosis, or edema Neur: Awake and alert Psych: Normal Mood and Affect Procedures/MDM MDM: Given the length of patient's symptoms as well as mild tachycardia decision was made to treat for possible pneumonia with azithromycin. I have low suspicion for tubercolosis, pleural effusion, acute heart failure, foreign body aspiration, pulmonary embolism, pneumothorax, or other emergent etiology. Patients O2 sat is normal and is not having difficulty breathing, therefore patient is fit for discharge. At this time, patient is stable for discharge and outpatient management. I have instructed the patient to follow-up with his/her primary care physician in 1-2 days. I have discussed with the patient the possibility of needing to see a specialist for further workup and imaging studies if symptoms persist. I have instructed the patient to promptly return to the ER for any new or worsening symptoms including but not limited to increased pain, fever, nausea, vomiting, weakness or LOC. The patient and/or family expressed understanding of and agreement with this plan. All questions were answered. Home care instructions were provided. Communication with patient both during the exam and instructions for discharge were performed with using a lube technician . Patient gave verbal confirmation to the practitioner, through the lube technician, that they understood everything that was being said to them. DISCLAIMER: Inadvertent spelling and grammatical errors are likely due to EHR/dictation software use and do not reflect on the overall quality of patient care. Also, please note that the electronic time recorded on this note does not necessarily reflect the actual time of the patient encounter. Departure Diagnosis: Primary Impression: Pneumonia Condition: Stable Patient Instructions: Pneumonia (Adult) Referrals: [facility] YOU HAVE RECEIVED A MEDICAL SCREENING EXAM AND THE RESULTS INDICATE THAT YOU DO NOT HAVE A CONDITION THAT REQUIRES URGENT TREATMENT IN THE EMERGENCY DEPARTMENT. FURTHER EVALUATION AND TREATMENT OF YOUR CONDITION CAN WAIT UNTIL YOU ARE SEEN IN YOUR DOCTORS OFFICE WITHIN THE NEXT 1-2 DAYS. IT IS YOUR RESPONSIBILITY TO MAKE AN APPOINTMENT FOR FOLOW-UP CARE. IF YOU HAVE A PRIMARY DOCTOR --you should call your primary doctor and schedule an appointment IF YOU DO NOT HAVE A PRIMARY DOCTOR YOU CAN CALL OUR PHYSICIAN REFERRAL HOTLINE AT IF YOU CAN NOT AFFORD TO SEE A PHYSICIAN YOU CAN CHOSE FROM THE FOLLOWING [facility] [address] [facility] [id number] [facility] [facility] [address] [facility] [address] [facility]. [facility] [address] [facility]. [facility] [address] Additional Instructions: FOLLOW UP WITH YOUR PRIMARY CARE PHYSICIAN TOMORROW.Return to this facility if you are not improving as expected. BRIAN BINGHAM Feb 25, 2019 15:09
== END 2019-02-25 14:30 | disposition home or self-care (01) ==
LOC: FTE 13:48
DX: J18.9 Pneumonia, unspecified organism (principal)
CPT/HCPCS: 99283

== ENCOUNTER 2019-03-16 21:33 | Emergency (ER) | payer MEDICAID ==
[~2019-03-16] VITALS: Ht 152.4 cm; Wt 55.3 kg
[2019-03-16 21:50] VITALS: BP 131/68; PULSE 77; RESP 22; Ht 152.4 cm; Wt 55.3 kg
--- NOTE | 2019-03-16 23:39 | ERD ---
ER Documentation Chief Complaint Chief Complaint C/O VAGINAL BLEEDING AND LOWER BACK PAIN TODAY, 5 WEEKS PREG HPI 4-year-old female previously healthy presenting to the emergency department complaining of intermittent vaginal bleeding which began just prior to arrival. She states it is light spotting. She is G1, P0 last menstrual cycle of January 28, 2019. Symptoms are mild to moderate in severity. She denies any suprapubic or abdominal pain. She denies any fevers, chills, nausea, vomiting, diarrhea, or other symptoms at this time. She took no medication for relief of symptoms. ROS All systems reviewed and are negative except as per history of present illness. Medications Home Meds Active Scripts Dextromethorphan Hb-Promethazine Hcl* (Promethazine DM* Syrup) 473 Ml Syrup, 5 ML PO Q6 PRN for COUGH, #4 OZ Prov:BRIAN BINGHAM 02/25/19 Azithromycin* (Zithromax*) 250 Mg Tablet, 250 MG PO .RehanPACK DIRECTED, #6 TAB TAKE 500 MG (2 TABS) THE FIRST DAY THEN 250 MG (1 TAB) DAYS 2-5 Prov:BRIAN BINGHAM 02/25/19 Hydrocodone/Acetaminophen ([place] 5-325 Tablet) 1 Each Tablet, 1 TAB PO Q6H PRN for PAIN, #7 TAB Prov:OLY SCOTT PA-C 11/02/18 Famotidine* (Pepcid*) 20 Mg Tablet, 20 MG PO BID for 4 Days, #30 TAB Prov:OLY SCOTT PA-C 11/02/18 Ondansetron (Ondansetron Odt) 4 Mg Tab.rapdis, 4 MG PO Q6H PRN for NAUSEA AND/OR VOMITING, #10 TAB Prov:OLY SCOTT PA-C 10/22/18 Acetaminophen* (Tylophen*) 500 Mg Capsule, 2 CAP PO Q8H PRN for PAIN AND OR ELEVATED TEMP, #20 CAP Prov:OLY SCOTT PA-C 10/22/18 Naproxen* (Naprosyn*) 500 Mg Tablet, 500 MG PO BID PRN for PAIN AND/OR INFLAMMATION, #30 TAB Prov:OLY SCOTT PA-C 08/26/18 Pseudoephedrine Hcl* (Suphedrin*) 30 Mg Tablet, 30 MG PO Q6 PRN for CONGESTION, #30 TAB Prov:OLY SCOTT PA-C 08/26/18 Benzonatate* (Tessalon Perle*) 100 Mg Capsule, 100 MG PO Q8H PRN for COUGH, #30 CAP Prov:OLY SCOTT PA-C 08/26/18 Promethazine Hcl* (Promethazine Hcl* Syrup) 6.25 Mg/5 Ml Syrup, 6.25 MG PO Q6H PRN for COUGH, #100 ML Prov:OLY SCOTT PA-C 08/26/18 Fluticasone Propionate (Flonase Allergy Relief) 9.9 Ml [place].susp, 2 SPRAY NASAL DAILY, #1 BOTTLE TO EACH NOSTRIL Prov:KIMBERLEY FORRESTER PA-C 04/23/18 Cetirizine Hcl* (Zyrtec*) 10 Mg Capsule, 10 MG PO DAILY, #14 TAB.CHEW Prov:KIMBERLEY FORRESTER PA-C 04/23/18 Ondansetron Hcl* (Zofran*) 4 Mg Tablet, 4 MG PO Q6H for NAUSEA AND/OR VOMITING, #30 TAB Prov:KIMBERLEY FORRESTER PA-C 04/23/18 Acetaminophen* (Tylophen*) 500 Mg Capsule, 1 CAP PO Q6H PRN for PAIN AND OR ELEVATED TEMP, #30 CAP Prov:KIMBERLEY FORRESTER PA-C 04/23/18 Famotidine* (Pepcid*) 20 Mg Tablet, 20 MG PO BID for 10 Days, TAB Prov:KIMBERLEY FORRESTER PA-C 04/23/18 Azithromycin* (Zithromax*) 250 Mg Tablet, 250 MG PO .RAGHAV DIRECTED, #6 TAB TAKE 500 MG (2 TABS) THE FIRST DAY THEN 250 MG (1 TAB) DAYS 2-5 Prov:MARIO FREY MD 03/25/18 Dextromethorphan Hb-Promethazine Hcl* (Promethazine DM* Syrup) 473 Ml Syrup, 5 ML PO Q6 PRN for COUGH for 5 Days, ML Prov:MARIO FREY MD 03/25/18 Phenazopyridine Hcl* (Pyridium*) 100 Mg Tab, 100 MG PO TID PRN for URINARY PAIN, #8 TAB Prov:MACARIO AHUMADA PA-C 01/23/18 Cephalexin* (Keflex*) 500 Mg Capsule, 500 MG PO BID for 7 Days, CAP Prov:MACARIO AHUMADA PA-C 01/23/18 Benzonatate* (Tessalon Perle*) 100 Mg Capsule, 100 MG PO Q8H PRN for COUGH, #30 CAP Prov:OLY SCOTT PA-C 09/27/17 Dextromethorphan Hb-Promethazine Hcl* (Promethazine DM* Syrup) 473 Ml Syrup, 5 ML PO Q6 PRN for COUGH, #100 ML Prov:OLY SCOTT PA-C 09/27/17 Ibuprofen* (Motrin*) 800 Mg Tab, 800 MG PO Q6, #30 TAB Prov:OLY SCOTT PA-C 09/27/17 Acetaminophen* (Tylophen*) 500 Mg Capsule, 2 CAP PO Q8H PRN for PAIN AND OR ELEVATED TEMP, #20 CAP Prov:OLY SCOTT PA-C 09/27/17 Diphenhydramine Hcl* (Benadryl*) 25 Mg Cap, 25 MG PO Q6, #30 CAP Prov:FELICIA SWANN NP 06/21/17 Triamcinolone Acetonide (Triamcinolone Acetonide) 0.025% - 60 Ml Lotion, 1 APPLIC TOP QID, #1 BOTTLE Prov:FELICIA SWANN NP 06/21/17 Albuterol Sulfate* (Proair HFA*) 8.5 Gm Hfa.aer.ad, 2 PUFF INH Q4, #1 INHALER Prov:AVE ESTEVES PA-C 01/25/17 Azithromycin* (Zithromax*) 250 Mg Tablet, 250 MG PO .RAGHAV DIRECTED, #6 TAB TAKE 500 MG (2 TABS) THE FIRST DAY THEN 250 MG (1 TAB) DAYS 2-5 Prov:AVE ESTEVES PA-C 01/25/17 Benzonatate* (Tessalon Perle*) 100 Mg Capsule, 100 MG PO Q8H PRN for COUGH, #20 CAP Prov:AVE ESTEVES PA-C 01/25/17 Dextromethorphan Hb-Promethazine Hcl (Promethazine DM Syrup) 473 Ml Syrup, 5 ML PO Q6H PRN for COUGH, #4 OZ Prov:MARIO FREY MD 05/16/16 Azithromycin* (Zithromax*) 250 Mg Tablet, 250 MG PO .ZPACK DIRECTED, #6 TAB TAKE 500 MG (2 TABS) THE FIRST DAY THEN 250 MG (1 TAB) DAYS 2-5 Prov:MARIO FREY MD 05/16/16 Meclizine Hcl* (Antivert*) 25 Mg Tablet, 25 MG PO Q6H PRN for dizziness, #20 TAB Prov:YANG EATON NP 07/24/15 Reported Medications Famotidine* (Pepcid*) 20 Mg Tablet 09/16/10 Allergies Allergies: Coded Allergies: No Known Drug Allergies (Verified Allergy, Unknown, 08/26/18) Uncoded Allergies: MEAT (Allergy, Unknown, 07/24/15) PMhx/Soc History of Surgery: No Anesthesia Reaction: No Hx Neurological Disorder: No Hx Respiratory Disorders: Yes (BRONCHITIS) Hx Cardiac Disorders: No Hx Psychiatric Problems: No Hx Miscellaneous Medical Probl: No Hx Alcohol Use: No Hx Substance Use: No Hx Tobacco Use: No Smoking Status: Never smoker FmHx Family History: No diabetes Physical Exam Vitals Vital Signs Date Temp Pulse Resp B/P (MAP) Pulse Ox O2 O2 Flow FiO2 Time Delivery Rate 03/16/19 99.0 77 22 131/68 99 21:50 (89) Physical Exam Const: No acute distress Head: Atraumatic Eyes: Normal Conjunctiva ENT: Normal External Ears, Nose and Mouth. Neck: Full range of motion. No meningismus. Resp: Clear to auscultation bilaterally Cardio: Regular rate and rhythm, no murmurs Abd: Soft, non tender, non distended. Normal bowel sounds. No rebound tenderness or guarding. No McBurney's point tenderness. There is no tenderness palpation of the suprapubic region. Skin: No petechiae or rashes Back: No midline or flank tenderness Ext: No cyanosis, or edema Neur: Awake and alert Psych: Normal Mood and Affect Result Diagram: 03/16/192233 Results 24 hrs Laboratory Tests Test 03/16/19 22:34 White Blood Count 8.5 10^3/ul Red Blood Count 4.60 10^6/ul Hemoglobin 14.2 g/dl Hematocrit 41.9 % Mean Corpuscular Volume 91.1 fl Mean Corpuscular Hemoglobin 30.9 pg Mean Corpuscular Hemoglobin Concent 33.9 g/dl Red Cell Distribution Width 12.0 % Platelet Count 311 10^3/UL Mean Platelet Volume 9.0 fl Immature Granulocytes % 0.500 % Neutrophils % 70.0 % Lymphocytes % 19.6 % Monocytes % 8.6 % Eosinophils % 0.7 % Basophils % 0.6 % Nucleated Red Blood Cells % 0.0 /100WBC Immature Granulocytes # 0.040 10^3/ul Neutrophils # 5.9 10^3/ul Lymphocytes # 1.7 10^3/ul Monocytes # 0.7 10^3/ul Eosinophils # 0.1 10^3/ul Basophils # 0.1 10^3/ul Nucleated Red Blood Cells # 0.0 10^3/ul Urine Color STRAW Urine Clarity SLIGHTLY CLOUDY Urine pH 7.0 Urine Specific [place] 1.003 Urine Ketones NEGATIVE mg/dL Urine Nitrite NEGATIVE mg/dL Urine Bilirubin NEGATIVE mg/dL Urine Urobilinogen NEGATIVE mg/dL Urine Leukocyte Esterase NEGATIVE Violeta/ul Urine Microscopic RBC 1 /HPF Urine Microscopic WBC 3 /HPF Urine Squamous Epithelial Cells FEW /HPF Urine Hemoglobin 1+ mg/dL Urine Glucose NEGATIVE mg/dL Urine Total Protein NEGATIVE mg/dl Beta HCG, Quantitative 364.9 mIU/ml [place] [id number] Radiology Main Line: [phone] DIAGNOSTIC IMAGING REPORT Patient: JANET PABON : 1985 Age: 34 Sex: F [id number] DOS: 03/16/192228 Ordering MD: BRIAN RAUSCH PA-C Location: [facility] Room/Bed: PROCEDURE: US OB. CLINICAL INDICATION: . Vaginal bleeding. TECHNIQUE: Multiple sonographic images of the pelvis were obtained. Transabdominal and transvaginal views of the pelvis are available for review. The images were reviewed on a PACS workstation. COMPARISON: No prior studies are available for comparison. FINDINGS: Uterus is normal size at 7.1 x 4.4 x 5 cm. No intrauterine gestational sac, pole or heart motion is identified. The endometrium is mildly thickened and measuring 12.4 mm. Uterus is otherwise unremarkable. The right ovary is normal in size and echogenicity with normal vascular flow. Right ovary is 2.8 x 1.7 x 2.3 cm. Left ovary is not identified. The adnexa are unremarkable. There is no adnexal mass. There is no free fluid. IMPRESSION: No live intrauterine identified. Slightly thickened endometrium. C onsiderations include a missed , early intrauterine and ectopic . No adnexal mass or free fluid to suggest ectopic . RPTAT: HMVK .Jake Reynaga MD, Date Time Electronically viewed and signed by .Jake Reynaga MD, MD on 03/17/2019 00:09 .K/ CC: BRIAN RAUSCH PA-C [id number] Procedures/MDM 34-year-old female presenting to the emergency department complaining of vaginal spotting which began earlier today. She is reportedly 5 weeks . Obstetrics ultrasound revealed no intrauterine . Beta hCG was 364. CBC showed no evidence of significant leukocytosis or anemia. History, physical exam, work-up most consistent with early intrauterine versus missed . No evidence to suggest ectopic , tubo-ovarian abscess, ovarian torsion, PID, acute surgical abdomen, or other emergent process. Patient will be discharged home in stable condition and advised to follow-up with her primary care physician and [facility] physician within the next 24 to 48 hours. Patient advised to return to the emergency department immediately for any new or worsening or concerning symptoms. The patient understands and agrees with the plan. Departure Diagnosis: Primary Impression: Vaginal bleeding in patient at less than 20 weeks gestation Condition: Fair Patient Instructions: Bleeding During Early Additional Instructions: Muchas julianna por [facility] para morrison servicio. Esperamos que en morrison visita a la allen de emergencia morrison problema medico haya sido solucionado y que se sienta mucho mejor. Para estar seguros que morrison mejoria sigue en proceso, le pedimos el favor de hacer jc becca de seguimiento medico con morrison doctor primario en los proximos 2-4 triplett. Lleve con usted estos documentos y las medicinas recetadas. Si basia sintomas empeoran, NO SE ESPERE, por favor regrese a allen de emergencia INMEDIATAMENTE. En jairo que usted no tenga un mdico de atencin primaria: Llame al mdico o clnica comunitaria de referencia que aparece abajo jessica las horas de consultorio para hacer jc becca para que le vean. CLINICAS: [facility] [phone] [address] [facility] [phone] [address] [facility] [phone] [facility] [phone] [address] [facility] [phone] [address] [facility]. [phone] BRIAN EDWARDS PA-C Mar 16, 2019 23:39
== END 2019-03-17 00:47 | disposition home or self-care (01) ==
LOC: FTE 21:33
DX: O20.9 Hemorrhage in early pregnancy, unspecified (principal); Z3A.01 Less than 8 weeks gestation of pregnancy
CPT/HCPCS: 36415; 76801; 76817; 81001; 84702; 85025; 86900; 86901; Z7502

== ENCOUNTER 2019-03-18 08:16 | Emergency (ER) | payer MEDICAID ==
[~2019-03-18] VITALS: Ht 157.5 cm; Wt 53.6 kg
[2019-03-18 08:20] VITALS: Ht 157.5 cm; Wt 53.6 kg
--- NOTE | 2019-03-18 09:16 | ERD ---
ER Documentation Chief Complaint Chief Complaint HEAVY VAG. BLEEDING TODAY WITH CLOTS; 6 WKS . HPI 34-year-old female who is G1, P0 approximately 6 weeks is here complaining of vaginal bleeding that began today. The triage note describes it as heavy bleeding with clots however she states it is not heavy and is more like a period. She has mild pelvic pain. No fever. No nausea or vomiting. She was seen here for same complaint last week. ROS All systems reviewed and are negative except as per history of present illness. Medications Home Meds Active Scripts Dextromethorphan Hb-Promethazine Hcl* (Promethazine DM* Syrup) 473 Ml Syrup, 5 ML PO Q6 PRN for COUGH, #4 OZ Prov:BRIAN BINGHAM 02/25/19 Azithromycin* (Zithromax*) 250 Mg Tablet, 250 MG PO .ZPACK DIRECTED, #6 TAB TAKE 500 MG (2 TABS) THE FIRST DAY THEN 250 MG (1 TAB) DAYS 2-5 Prov:BRIAN BINGHAM 02/25/19 Hydrocodone/Acetaminophen ([place] 5-325 Tablet) 1 Each Tablet, 1 TAB PO Q6H PRN for PAIN, #7 TAB Prov:OLY SCOTT PA-C 11/02/18 Famotidine* (Pepcid*) 20 Mg Tablet, 20 MG PO BID for 4 Days, #30 TAB Prov:OLY SCOTT PA-C 11/02/18 Ondansetron (Ondansetron Odt) 4 Mg Tab.rapdis, 4 MG PO Q6H PRN for NAUSEA AND/OR VOMITING, #10 TAB Prov:OLY SCOTT PA-C 10/22/18 Acetaminophen* (Tylophen*) 500 Mg Capsule, 2 CAP PO Q8H PRN for PAIN AND OR ELEVATED TEMP, #20 CAP Prov:OLY SCOTT PA-C 10/22/18 Naproxen* (Naprosyn*) 500 Mg Tablet, 500 MG PO BID PRN for PAIN AND/OR INFLAMMATION, #30 TAB Prov:OLY SCOTT PA-C 08/26/18 Pseudoephedrine Hcl* (Suphedrin*) 30 Mg Tablet, 30 MG PO Q6 PRN for CONGESTION, #30 TAB Prov:OLY SCOTT PA-C 08/26/18 Benzonatate* (Tessalon Perle*) 100 Mg Capsule, 100 MG PO Q8H PRN for COUGH, #30 CAP Prov:OLY SCOTT PA-C 08/26/18 Promethazine Hcl* (Promethazine Hcl* Syrup) 6.25 Mg/5 Ml Syrup, 6.25 MG PO Q6H PRN for COUGH, #100 ML Prov:OLY SCOTT PA-C 08/26/18 Fluticasone Propionate (Flonase Allergy Relief) 9.9 Ml [place].susp, 2 SPRAY NASAL DAILY, #1 BOTTLE TO EACH NOSTRIL Prov:KIMBERLEY FORRESTER PA-C 04/23/18 Cetirizine Hcl* (Zyrtec*) 10 Mg Capsule, 10 MG PO DAILY, #14 TAB.CHEW Prov:KIMBERLEY FORRESTER PA-C 04/23/18 Ondansetron Hcl* (Zofran*) 4 Mg Tablet, 4 MG PO Q6H for NAUSEA AND/OR VOMITING, #30 TAB Prov:KIMBERLEY FORRESTER PA-C 04/23/18 Acetaminophen* (Tylophen*) 500 Mg Capsule, 1 CAP PO Q6H PRN for PAIN AND OR ELEVATED TEMP, #30 CAP Prov:KIMBERLEY FORRESTER PA-C 04/23/18 Famotidine* (Pepcid*) 20 Mg Tablet, 20 MG PO BID for 10 Days, TAB Prov:KIMBERLEY FORRESTER PA-C 04/23/18 Azithromycin* (Zithromax*) 250 Mg Tablet, 250 MG PO .RAGHAV DIRECTED, #6 TAB TAKE 500 MG (2 TABS) THE FIRST DAY THEN 250 MG (1 TAB) DAYS 2-5 Prov:MARIO FREY MD 03/25/18 Dextromethorphan Hb-Promethazine Hcl* (Promethazine DM* Syrup) 473 Ml Syrup, 5 ML PO Q6 PRN for COUGH for 5 Days, ML Prov:MARIO FREY MD 03/25/18 Phenazopyridine Hcl* (Pyridium*) 100 Mg Tab, 100 MG PO TID PRN for URINARY PAIN, #8 TAB Prov:MACARIO AHUMADA PA-C 01/23/18 Cephalexin* (Keflex*) 500 Mg Capsule, 500 MG PO BID for 7 Days, CAP Prov:MACARIO AHUMADA PA-C 01/23/18 Benzonatate* (Tessalon Perle*) 100 Mg Capsule, 100 MG PO Q8H PRN for COUGH, #30 CAP Prov:OLY SCOTT PA-C 09/27/17 Dextromethorphan Hb-Promethazine Hcl* (Promethazine DM* Syrup) 473 Ml Syrup, 5 ML PO Q6 PRN for COUGH, #100 ML Prov:OLY SCOTT PA-C 09/27/17 Ibuprofen* (Motrin*) 800 Mg Tab, 800 MG PO Q6, #30 TAB Prov:OLY SCOTT PA-C 09/27/17 Acetaminophen* (Tylophen*) 500 Mg Capsule, 2 CAP PO Q8H PRN for PAIN AND OR ELEVATED TEMP, #20 CAP Prov:OLY SCOTT PA-C 09/27/17 Diphenhydramine Hcl* (Benadryl*) 25 Mg Cap, 25 MG PO Q6, #30 CAP Prov:FELICIA SWANN NP 06/21/17 Triamcinolone Acetonide (Triamcinolone Acetonide) 0.025% - 60 Ml Lotion, 1 APPLIC TOP QID, #1 BOTTLE Prov:FELICIA SWANN NP 06/21/17 Albuterol Sulfate* (Proair HFA*) 8.5 Gm Hfa.aer.ad, 2 PUFF INH Q4, #1 INHALER Prov:AVE ESTEVES PA-C 01/25/17 Azithromycin* (Zithromax*) 250 Mg Tablet, 250 MG PO .RAGHAV DIRECTED, #6 TAB TAKE 500 MG (2 TABS) THE FIRST DAY THEN 250 MG (1 TAB) DAYS 2-5 Prov:AVE ESTEVES PA-C 01/25/17 Benzonatate* (Tessalon Perle*) 100 Mg Capsule, 100 MG PO Q8H PRN for COUGH, #20 CAP Prov:AVE ESTEVES PA-C 01/25/17 Dextromethorphan Hb-Promethazine Hcl (Promethazine DM Syrup) 473 Ml Syrup, 5 ML PO Q6H PRN for COUGH, #4 OZ Prov:MARIO FREY MD 05/16/16 Azithromycin* (Zithromax*) 250 Mg Tablet, 250 MG PO .ZPACK DIRECTED, #6 TAB TAKE 500 MG (2 TABS) THE FIRST DAY THEN 250 MG (1 TAB) DAYS 2-5 Prov:MARIO FREY MD 05/16/16 Meclizine Hcl* (Antivert*) 25 Mg Tablet, 25 MG PO Q6H PRN for dizziness, #20 TAB Prov:YANG EATON NP 07/24/15 Reported Medications Famotidine* (Pepcid*) 20 Mg Tablet 09/16/10 Allergies Allergies: Coded Allergies: No Known Drug Allergies (Verified Allergy, Unknown, 08/26/18) Uncoded Allergies: MEAT (Allergy, Unknown, 07/24/15) PMhx/Soc History of Surgery: No Anesthesia Reaction: No Hx Neurological Disorder: No Hx Respiratory Disorders: Yes (BRONCHITIS) Hx Cardiac Disorders: No Hx Psychiatric Problems: No Hx Miscellaneous Medical Probl: No Hx Alcohol Use: No Hx Substance Use: No Hx Tobacco Use: No FmHx Family History: No diabetes Physical Exam Vitals Vital Signs Date Temp Pulse Resp B/P (MAP) Pulse Ox O2 O2 Flow FiO2 Time Delivery Rate 03/18/19 98.3 86 18 147/73 98 08:20 (97) Physical Exam INITIAL VITAL SIGNS: Reviewed by me GENERAL: Awake, alert and oriented x 4, well appearing, nontoxic, speaking in full sentences. No acute distress RESPIRATORY: Clear to auscultation bilaterally. Symmetric chest wall rise. No wheezing or rales. No accessory muscle use. CV: Regular rate and rhythm. No murmurs, rubs, or gallops. ABDOMEN: Soft, non-distended. Nontender. Negative [place]. Negative [place] point tenderness. No CVA tenderness bilaterally. No guarding. No rebound. Results 24 hrs Laboratory Tests Test 03/18/19 08:30 03/18/19 08:37 Urine Color YELLOW Urine Clarity SLIGHTLY CLOUDY Urine pH 7.0 Urine Specific [place] 1.003 Urine Ketones NEGATIVE mg/dL Urine Nitrite NEGATIVE mg/dL Urine Bilirubin NEGATIVE mg/dL Urine Urobilinogen NEGATIVE mg/dL Urine Leukocyte Esterase NEGATIVE [place]/ul Urine Microscopic RBC 21 /HPF Urine Microscopic WBC 5 /HPF Urine Squamous Epithelial Cells FEW /HPF Urine Bacteria FEW /HPF Urine Hemoglobin 3+ mg/dL Urine Glucose NEGATIVE mg/dL Urine Total Protein NEGATIVE mg/dl Beta HCG, Quantitative 269.8 mIU/ml Procedures/MDM The differential diagnosis includes but is not limited to threatened/incomplete/inevitable/complete , ectopic , non- related bleeding, and others. Patient seen for vaginal bleeding last week as well. I reviewed her notes and labs. Repeat ultrasound and beta hCG and urinalysis ordered today. beta-hCG 2 days ago was 364.9 it is now decreased to 269.8. Furthermore ultrasound shows no intrauterine gestation. Patient likely had a miscarriage. She was given copies of her labs and ultrasound report so she can follow-up with [facility] [employer]. Patient counseled regarding my diagnostic impression and care plan. Prior to discharge all questions answered. Pt agrees with treatment plan and understands strict return precautions. Pt is instructed to follow up with primary care provider within 24-48 hours. Precautionary instructions provided including instructions to return to the ER if not improving or for any worsening or changing symptoms or concerns. Departure Diagnosis: Primary Impression: Miscarriage Condition: Stable DOMI PAINTING PA-C Mar 18, 2019 09:16
[2019-03-18 10:24] VITALS: BP 134/75; PULSE 75; RESP 18
== END 2019-03-18 10:25 | disposition home or self-care (01) ==
LOC: FTE 08:16
DX: O03.9 Complete or unspecified spontaneous abortion without complication (principal)
CPT/HCPCS: 76801; 76817; 81001; 84702; Z7502

== ENCOUNTER 2019-06-14 15:02 | Emergency (ER) | payer MEDICAID ==
[~2019-06-14] VITALS: Wt 54.9 kg
[2019-06-14 15:53] VITALS: BP 139/90; PULSE 96; RESP 18
== END 2019-06-14 16:00 | disposition home or self-care (01) ==
LOC: E/R 15:02
DX: J06.9 Acute upper respiratory infection, unspecified (principal)
CPT/HCPCS: 99283